=== PATIENT | female | born 1960 | race Caucasian/White ===

== ENCOUNTER 2016-11-22 04:04 | Emergency (ER) | payer OTHER ==
[~2016-11-22] VITALS: Ht 160 cm; Wt 59.1 kg
[2016-11-22 04:14] VITALS: BP 130/91
[2016-11-22] MEDS ORDERED: LIDOCAINE/EPINEPHRINE 1%-1:100,000 (XYLOCAINE) 20ML VIAL TOP ONE (04:20)
[2016-11-22] MEDS ORDERED: LIDOCAINE 2% (XYLOCAINE) 20 ML VIAL INJ ONE (04:22)
[2016-11-22] MEDS ORDERED: CEPHALEXIN 500 MG (KEFLEX) CAPSULE PO ONE (04:35)
== END 2016-11-22 04:48 | disposition home or self-care (01) ==
LOC: ED 04:05
DX: S60.454A Superficial foreign body of right ring finger, initial encounter (principal); W45.8XXA Other foreign body or object entering through skin, initial encounter; Y93.E9 Activity, other interior property and clothing maintenance; Y92.003 Bedroom of unspecified non-institutional (private) residence as the place of occurrence of the external cause; F17.210 Nicotine dependence, cigarettes, uncomplicated
CPT/HCPCS: 99282; J2001; 99283